=== PATIENT | female | born 1980 | race Caucasian/White ===

== ENCOUNTER → 2016-12-01 | Outpatient (CLI) | payer BC ==
[~2016-12-01] MED LIST: CIPRO PO; NECON PO; OMEPRAZOLE20 M1 PO; PERCOCET5/325 PO; SYNTHROID PO; SYNTHROID0.15 MG PO
== END | disposition home or self-care (01) ==
LOC: CLAB 16:53
DX: E03.9 Hypothyroidism, unspecified (principal)
CPT/HCPCS: 36415; 84443